=== PATIENT | male | born 1950 | race Caucasian/White ===

== ENCOUNTER 2023-01-05 20:23 | Emergency (ER) | payer MEDICAID ==
[~2023-01-05] VITALS: Ht 167.6 cm; Wt 52.0 kg
[2023-01-05] MEDS ORDERED: MORPHINE SULFATE 4 MG/ML CPJ (NOT FOR IM USE) IV ONE (21:00)
[2023-01-05] MEDS ORDERED: SODIUM CHLORIDE 0.9% 1,000 ML IV ONE (21:00)
[2023-01-06 02:19] LABS: BASOPHILS % 0.6 % (0.0-2.0); EOSINOPHILS % 0.5 % (0.0-5.0); HEMATOCRIT. 30.5 % (42.0-52.0); LYMPHOCYTES % 7.4 % (20.0-50.0); MEAN CORPUSCULAR HEMOGLOBIN 31.9 pg (28.0-32.0); MEAN CORPUSCULAR VOLUME 96.9 fL (80.0-94.0); MEAN PLATELET VOLUME 6.3 fl (7.4-10.4); MONOCYTES % 7.8 % (2.0-8.0); NEUTROPHILS % 83.7 % (40.0-76.0); PLATELET 370 x1000/uL (130-400); RED BLOOD CELL COUNT 3.15 mill/uL (4.7-6.1); RED CELL DISTRIBUTION WIDTH 15.6 % (11.6-14.6)
[2023-01-06 02:24] LABS: CHLORIDE 107 mEq/L (98-107)
[2023-01-06 02:25] LABS: PROTHROMBIN TIME 11.1 sec (9.6-11.0)
[2023-01-06] MEDS ORDERED: MORPHINE SULFATE 4 MG/ML CPJ (NOT FOR IM USE) IV STA (03:18)
[2023-01-06] MEDS ORDERED: ONDANSETRON HCL 4MG/2ML INJ IV STA (03:18)
[2023-01-06 03:35] VITALS: BP 106/74
[2023-01-06] MEDS ORDERED: DOCU-138 MT (03:43)
== END 2023-01-06 04:40 | disposition home or self-care (01) ==
LOC: ER 20:23
DX: K59.00 Constipation, unspecified (principal); Z85.9 Personal history of malignant neoplasm, unspecified
CPT/HCPCS: 36415; 74176; 80053; 83690; 84484; 85025; 85610; 96361; 96374; 96375; 96376; 99285; J2270; J2405; J7030; Z7610